=== PATIENT | female | born 1970 | race Hispanic/Latino ===

== ENCOUNTER 2023-10-17 16:22 | Emergency (ER) | payer OTHER ==
[~2023-10-17] VITALS: Ht 157.5 cm; Wt 78.9 kg
[2023-10-17 17:04] LABS: BASOPHILS # (AUTO) 0.02 K/uL (0.00-0.20); BASOPHILS % (AUTO) 0.2 % (0.0-5.0); EOSINOPHILS # (AUTO) 0.04 K/uL (0.00-0.70); EOSINOPHILS % (AUTO) 0.4 % (0.0-8.0); HEMATOCRIT 47.1 % (36-48); IMMATURE GRANULOCYTE ABSOLUTE 0.04 K/uL (0-1); LYMPHOCYTES # (AUTO) 2.7 K/uL (1.0-4.8); LYMPHOCYTES % (AUTO) 28.8 % (21.0-51.0); MEAN CORPUSCULAR HEMOGLOBIN 29.9 pg (27.0-33.0); MEAN CORPUSCULAR HGB CONC 33.8 g/dL (32.0-36.0); MEAN CORPUSCULAR VOLUME 88.7 fL (79-99); MONOCYTES # (AUTO) 0.5 K/uL (0.1-1.0); MONOCYTES % (AUTO) 5.1 % (3.0-13.0); NEUTROPHILS # (AUTO) 6.1 K/uL (1.8-7.7); NEUTROPHILS % (AUTO) 65.1 % (40.0-77.0); PLATELET COUNT (AUTO) 285 K/uL (130-400); RED BLOOD CELL COUNT(AUTO) 5.31 MIL/uL (4.00-5.50); RED CELL DISTRIBUTION WIDTH 12.1 % (11.0-15.5); WHITE BLOOD COUNT (AUTO) 9.4 K/uL (4.8-10.8)
[2023-10-17 17:14] LABS: CREATININE 0.7 mg/dL (0.5-1.0); POTASSIUM 3.8 mmol/L (3.5-5.1)
[2023-10-17 17:19] LABS: ALBUMIN 4.1 g/dL (3.5-5.0); BILIRUBIN,TOTAL 0.4 mg/dL (0.2-1.0); TOTAL PROTEIN, SERUM 8.5 g/dL (6.0-8.3)
[2023-10-17 18:09] LABS: ERYTHROCYTE SEDIMENTATION RATE 18 MM/HR (0-30)
[2023-10-17] MEDS: KETOROLAC 15MG/ML VIAL (15MG/ML) IM STA (18:55)
[2023-10-17] MEDS: HYDROCODONE/ACETAMINOPHEN 5/325 MG TAB PO STA (18:55)
[2023-10-17 20:24] VITALS: BP 152/100; PULSE 100; RESP 16; O2SAT 99
[2023-10-17] MEDS ORDERED: SULF1TAB42 PO (20:27)
[2023-10-17] MEDS ORDERED: AMOX1TAB16 PO (20:27)
== END 2023-10-17 20:38 | disposition home or self-care (01) ==
LOC: EDH 16:22
DX: M79.672 Pain in left foot (principal); M79.89 Other specified soft tissue disorders; E11.9 Type 2 diabetes mellitus without complications; Z90.49 Acquired absence of other specified parts of digestive tract; Z79.899 Other long term (current) drug therapy
CPT/HCPCS: 99284; 80053; 85025; 85651; 83605; 36415; 73630; 96372; 84145; J1885

== ENCOUNTER 2023-10-25 23:36 | Emergency (ER) | payer OTHER ==
[~2023-10-25] VITALS: Ht 154.9 cm; Wt 78.9 kg
[~2023-10-25 23:36] MED LIST: AMOX1TAB16 PO; SULF1TAB42 PO
[2023-10-26 00:20] LABS: CREATININE 0.7 mg/dL (0.5-1.0); POTASSIUM 4.1 mmol/L (3.5-5.1)
[2023-10-26 00:24] LABS: ALBUMIN 3.8 g/dL (3.5-5.0); BILIRUBIN,TOTAL 0.2 mg/dL (0.2-1.0); TOTAL PROTEIN, SERUM 8.4 g/dL (6.0-8.3)
[2023-10-26 00:26] LABS: BASOPHILS # (AUTO) 0.02 K/uL (0.00-0.20); BASOPHILS % (AUTO) 0.2 % (0.0-5.0); EOSINOPHILS # (AUTO) 0.09 K/uL (0.00-0.70); EOSINOPHILS % (AUTO) 0.9 % (0.0-8.0); HEMATOCRIT 44.2 % (36-48); IMMATURE GRANULOCYTE ABSOLUTE 0.04 K/uL (0-1); LYMPHOCYTES # (AUTO) 3.4 K/uL (1.0-4.8); LYMPHOCYTES % (AUTO) 34.3 % (21.0-51.0); MEAN CORPUSCULAR HEMOGLOBIN 29.8 pg (27.0-33.0); MEAN CORPUSCULAR HGB CONC 32.8 g/dL (32.0-36.0); MEAN CORPUSCULAR VOLUME 90.8 fL (79-99); MONOCYTES # (AUTO) 0.8 K/uL (0.1-1.0); MONOCYTES % (AUTO) 7.6 % (3.0-13.0); NEUTROPHILS # (AUTO) 5.6 K/uL (1.8-7.7); NEUTROPHILS % (AUTO) 56.6 % (40.0-77.0); PLATELET COUNT (AUTO) 314 K/uL (130-400); RED BLOOD CELL COUNT(AUTO) 4.87 MIL/uL (4.00-5.50); RED CELL DISTRIBUTION WIDTH 12.1 % (11.0-15.5)
[2023-10-26] MEDS ORDERED: COLC0.6C3 PO (01:13)
[2023-10-26] MEDS ORDERED: INDO50CA98 PO (01:13)
[2023-10-26] MEDS: KETOROLAC 15MG/ML VIAL (15MG/ML) IM ONE (01:46)
[2023-10-26] MEDS: SOLU-MEDROL 40MG VIAL IVP ONE (01:46)
[2023-10-26] MEDS: COLCHICINE 0.6 MG TABLET PO SCH (01:49)
[2023-10-26 02:33] VITALS: BP 127/62; PULSE 78; RESP 18; O2SAT 99
== END 2023-10-26 02:32 | disposition home or self-care (01) ==
LOC: EDH 23:36
DX: E11.9 Type 2 diabetes mellitus without complications (principal); E66.3 Overweight; M10.9 Gout, unspecified; M79.672 Pain in left foot; E78.00 Pure hypercholesterolemia, unspecified; J45.909 Unspecified asthma, uncomplicated; Z68.32 Body mass index [BMI] 32.0-32.9, adult; Z90.89 Acquired absence of other organs; Z90.49 Acquired absence of other specified parts of digestive tract
CPT/HCPCS: 99284; 84550; 80053; 85025; 87040 ×2; 83605; 36415; 73630; 96372; 96374; J2920; J1885

== ENCOUNTER 2023-11-08 10:57 | Emergency (ER) | payer OTHER ==
[~2023-11-08] VITALS: Ht 154.9 cm; Wt 74.4 kg
[~2023-11-08 10:57] MED LIST changes: +COLC0.6C3 PO; +INDO50CA98 PO
[2023-11-08 12:03] LABS: BASOPHILS # (AUTO) 0.03 K/uL (0.00-0.20); BASOPHILS % (AUTO) 0.3 % (0.0-5.0); EOSINOPHILS # (AUTO) 0.04 K/uL (0.00-0.70); EOSINOPHILS % (AUTO) 0.4 % (0.0-8.0); HEMATOCRIT 47.2 % (36-48); IMMATURE GRANULOCYTE ABSOLUTE 0.04 K/uL (0-1); LYMPHOCYTES # (AUTO) 2.5 K/uL (1.0-4.8); MEAN CORPUSCULAR HEMOGLOBIN 29.2 pg (27.0-33.0); MEAN CORPUSCULAR HGB CONC 33.1 g/dL (32.0-36.0); MEAN CORPUSCULAR VOLUME 88.4 fL (79-99); MONOCYTES # (AUTO) 0.7 K/uL (0.1-1.0); MONOCYTES % (AUTO) 5.9 % (3.0-13.0); NEUTROPHILS # (AUTO) 7.9 K/uL (1.8-7.7); PLATELET COUNT (AUTO) 339 K/uL (130-400); RED BLOOD CELL COUNT(AUTO) 5.34 MIL/uL (4.00-5.50); RED CELL DISTRIBUTION WIDTH 12.6 % (11.0-15.5); WHITE BLOOD COUNT (AUTO) 11.2 K/uL (4.8-10.8)
[2023-11-08] MEDS: KETOROLAC 30MG VIAL (30MG/ML) IVP ONE (12:09)
[2023-11-08] MEDS: CLINDAMYCIN IVPB 600MG/50ML 50 ML IV STA (12:09)
[2023-11-08 12:12] LABS: CARBON DIOXIDE 22 mmol/L (21-32); CHLORIDE 99 mmol/L (101-111); CREATININE 0.7 mg/dL (0.5-1.0); GLOMERULAR FILTR. RATE CALC 103 mL/min (>90); GLUCOSE,RANDOM 196 mg/dL (70-105); POTASSIUM 3.9 mmol/L (3.5-5.1); SODIUM SERUM 135 mmol/L (136-145); UREA NITROGEN, BLOOD 13 mg/dL (7-18)
[2023-11-08 12:17] LABS: ALANINE AMINOTRANSFERASE 46 U/L (12-78); ALBUMIN 4.2 g/dL (3.5-5.0); ASPARTATE AMINOTRANSFERASE 23 U/L (10-37); BILIRUBIN,TOTAL 0.3 mg/dL (0.2-1.0); TOTAL PROTEIN, SERUM 8.8 g/dL (6.0-8.3)
[2023-11-08] MEDS ORDERED: CLIN-141 PO (13:01)
[2023-11-08 13:27] VITALS: BP 102/60; PULSE 79; RESP 18; O2SAT 98
== END 2023-11-08 13:28 | disposition home or self-care (01) ==
LOC: EDH 10:57
DX: E11.621 Type 2 diabetes mellitus with foot ulcer (principal); L97.529 Non-pressure chronic ulcer of other part of left foot with unspecified severity; E78.00 Pure hypercholesterolemia, unspecified; J45.909 Unspecified asthma, uncomplicated; E86.0 Dehydration; Z79.899 Other long term (current) drug therapy; Z90.49 Acquired absence of other specified parts of digestive tract; Z98.890 Other specified postprocedural states
CPT/HCPCS: 99284; 96365; 96375; 80053; 85025; 87040 ×2; 82948; 83605; 36415; 73630; J1885; J3490

== ENCOUNTER 2025-02-06 03:37 | Emergency (ER) | payer SELFPAY ==
[~2025-02-06] VITALS: Ht 154.9 cm; Wt 78.0 kg
[~2025-02-06 03:37] MED LIST changes: +CLIN-141 PO
--- NOTE | 2025-02-06 04:03 | ERN ---
ED Note History of Present Illness Stated Complaint: C/O ABD PAIN TO LEFT SIDE Chief Complaint: Abdominal Pain Time Seen by MD: 03:50 Dictation: This is a 54-year-old female who presented to the emergency room complaining of left-sided abdominal pain she stated that the pain started yesterday it was mostly in the left middle abdomen radiating down towards the pelvis area. Pain did not start in the back. No fever chills or rigors. No nausea vomitings no diarrhea she had a bowel movement today that was very hard and small. No other family members are sick. No previous history of any kidney stones. She does give a history of pain when she is urinating. No blood in the urine. Temperature 97.4 pulse 84 respirations 20 blood pressure 140/88 with a pulse oximetry of 98% on room air Her chronic medical problems include diabetes mellitus, asthma, cholecystectomy Allergies: Coded Allergies: No Known Drug Allergies (Unverified Allergy, Unknown, 10/17/23) Home Meds Active Scripts Clindamycin HCl (Clindamycin HCl) 300 Mg Capsule, 300 MG PO QID for 10 Days, #40 CAP Prov:TALYA CARRILLO NP 11/08/23 Colchicine (Colchicine) 0.6 Mg Capsule, 0.6 MG PO TID, #60 CAP Prov:ROBERTH FRANKLIN MD 10/26/23 Indomethacin (Indomethacin) 50 Mg Capsule, 50 MG PO TID, #60 CAP Prov:ROBERTH FRANKLIN MD 10/26/23 Amoxicillin/Potassium Clav (Amox Tr-K Clv 875-125 mg Tab) 875 Mg-125 Mg Tablet, 1 EACH PO BID for 5 Days, #10 TAB Prov:YESSENIA STRANGE DYE RANGE TENDER 10/17/23 Sulfamethoxazole/Trimethoprim (Bactrim Ds Tablet) 800 Mg-160 Mg Tablet, 1 TAB PO BID for 7 Days, #14 TAB 0 Refills Prov:YESSENIA STRANGE DYE RANGE TENDER 10/17/23 Past Medical History Past Medical History: Asthma, Diabetes-Type II, Other Additional Past Medical Hx: HX OF SEASONAL ALLERGIES Surgical History: Cholecystectomy Family History: Negative Social History: Negative History: Not Applicable RN Note Reviewed/Agreed w/PFSH: Yes Review of System Dictation Constitutional: Negative for fever,chills, and weight loss Eyes: Negative for injury, pain,redness, and discharge ENT: Negative for injury,pain or swelling Cardiovascular: Negative for chest pain, palpitations, and edema Respiratory: Negative for shortness of breath, cough, and wheezing, Abdomen/GI: Positive for left side abdominal pain, denies nausea, vomiting, diarrhea, Back: Negative for injury and pain : Negative for injury, bleeding and discharge MS/Extremity: Negative for injury and deformity Skin: Negative for rash, and discoloration Neuro: Negative for headache, weakness, numbness, tingling, and seizure Psych: Negative for suicide ideation, homicidal ideation, and hallucinations Initial Vital Sign VS Vital Signs Date Time Temp Pulse Resp B/P (MAP) Pulse Ox O2 Delivery O2 Flow Rate FiO2 02/06/25 03:39 97.3 84 20 140/88 98 Room Air 02/06/25 04:02 0 21 Physical Exam Dictation General: awake, alert, NAD obese female Head/Face: Normocephalic, atraumatic Eyes: PERRL, EOMI, vision at baseline ENT: oral cavity clear, TMs clear, no signs of infection Neck: Trachea midline, supple, no nuchal rigidity Cardiovascular: RRR, normal S1/S2, No MRGs, no JVD Respiratory: CTAB, no respiratory distress, No rales or wheezes Abdomen: Soft, mild tenderness in the left side of the abdomen in the paraumbilical area., non-distended, normal bowel sounds, no guarding or rebound. Skin: Warm, dry, normal turgor, no rash MS/Extremity: Pulses equal, no cyanosis, neurovascular intact, FROM Neuro: COAx4, GCS 15, strength 5/5, CN 2-12 intact, normal cerebellar exam, normal gait, Psych: Normal behavior, mood, and affect normal Extremities-trace edema without any palpable cords, Homans sign is negative Results (Laboratory/Radiology) Laboratory/Radiology Laboratory Tests Test 02/06/25 03:57 02/06/25 04:00 Urine Color COLORLESS (YELLOW) Urine Appearance CLEAR (CLEAR) Urine pH 6.0 (5.0-8.0) Urine Specific [place] 1.004 (1.001-1.031) Urine Protein NEGATIVE mg/dL (NEGATIVE) Urine Glucose (UA) >=1000 mg/dL (NEGATIVE) H Urine Ketones NEGATIVE mg/dL (NEGATIVE) Urine Occult Blood NEGATIVE (NEGATIVE) Urine Nitrate NEGATIVE (NEGATIVE) Urine Bilirubin NEGATIVE mg/dL (NEGATIVE) Urine Urobilinogen 0.2 mg/dL (0.2-1.0) Urine Leukocyte Esterase NEGATIVE Saima/uL Urine RBC 0-1 /HPF (0-1) Urine WBC 0-1 /HPF (0-1) Urine Bacteria RARE /HPF (None Seen) White Blood Count 7.7 K/uL (4.8-10.8) Red Blood Count 5.13 MIL/uL (4.00-5.50) Hemoglobin 15.3 g/dL (12.0-16.0) Hematocrit 46.1 % (36-48) Mean Corpuscular Volume 89.9 fL (79-99) Mean Corpuscular Hemoglobin 29.8 pg (27.0-33.0) Mean Corpuscular Hemoglobin Concent 33.2 g/dL (32.0-36.0) Red Cell Distribution Width 12.8 % (11.0-15.5) Platelet Count 303 K/uL (130-400) Mean Platelet Volume 9.8 fL (7.5-10.5) Immature Granulocyte % (Auto) 0.4 % (0-1) Neutrophils (%) (Auto) 56.0 % (40.0-77.0) Lymphocytes (%) (Auto) 35.5 % (21.0-51.0) Monocytes (%) (Auto) 6.8 % (3.0-13.0) Eosinophils (%) (Auto) 0.9 % (0.0-8.0) Basophils (%) (Auto) 0.4 % (0.0-5.0) Neutrophils # (Auto) 4.3 K/uL (1.8-7.7) Lymphocytes # (Auto) 2.7 K/uL (1.0-4.8) Monocytes # (Auto) 0.5 K/uL (0.1-1.0) Eosinophils # (Auto) 0.07 K/uL (0.00-0.70) Basophils # (Auto) 0.03 K/uL (0.00-0.20) Absolute Immature Granulocyte (auto 0.03 K/uL (0-1) Nucleated Red Blood Cells 0.0 % (0.0-0.19) Sodium Level 135 mmol/L (136-145) L Potassium Level 4.0 mmol/L (3.5-5.1) Chloride Level 98 mmol/L (101-111) L Carbon Dioxide Level 28 mmol/L (21-32) Blood Urea Nitrogen 14 mg/dL (7-18) Creatinine 0.5 mg/dL (0.5-1.0) Glomerular Filtration Rate Calc 111 mL/min (>90) Random Glucose 167 mg/dL (70-105) H Total Calcium 9.6 mg/dL (8.5-10.1) Lipase 28 U/L (16-77) Labs Reviewed?: Yes CT Scan Comment: RD: left sided abdominal pain ORDERING PHYSICIAN: ROBERTH FRANKLIN MD PROCEDURE: ABD PELVWO - CT ABD/PEL WO CON RENAL/APPY EXAM: CT Abdomen and Pelvis without IV contrast CLINICAL HISTORY: Left side abdominal pain. TECHNIQUE: Thin collimated axial CT images of the abdomen and pelvis were obtained, with sagittal and coronal reformatted images also submitted. A CT scan is done according to ALARA (As Low As Reasonably Achievable). CONTRAST: None. COMPARISON: None. FINDINGS: The included lungs are clear. No focal abnormality within the liver, pancreas, spleen, or adrenals. Cholelithiasis without acute cholecystitis. 1.2 x 1.8 cm exophytic fat density lesion around the right renal lower pole, likely an angiomyolipoma. No renal, ureteral, or bladder calculus. Unremarkable urinary bladder. The uterus and ovaries are within normal limits. No obvious bowel wall thickening, dilatation, or obstruction. A component of mild constipation is present in the colon. The appendix is not visualized. No inflammatory changes around the cecum. Mild calcific atherosclerotic disease in the abdominal aorta and its branches. No pathological lymphadenopathy in the abdomen or pelvis. No ascites or pneumoperitoneum. No acute bony abnormality is evident. Tiny, uncomplicated fat-containing umbilical and supraumbilical hernias. IMPRESSIONS: No acute process in the abdomen or pelvis. 1.2 x 1.8 cm exophytic fat density lesion around the right renal lower pole, likely an angiomyolipoma. No renal, ureteral, or bladder calculus. Cholelithiasis without acute cholecystitis. A component of mild constipation is present in the colon. Tiny, uncomplicated fat-containing umbilical and supraumbilical hernias. /[place] DICTATED BY: ANTHONY SANCHEZ Jr., MD DATE: 02/06/25615 ELECTRONICALLY SIGNED BY: ANTHONY SANCHEZ Jr., MD DATE: 02/06/25615 ED Course ED Course Orders Procedure Category Date Status Time Vital Signs Per CPOE 02/06/25 Transmitted Routine 03:47 Saline Lock Iv CPOE 02/06/25 Transmitted 03:47 Cbc With Differential LAB 02/06/25 Complete 03:47 Lipase LAB 02/06/25 Complete 03:47 Urinalysis Profile LAB 02/06/25 Complete 03:47 Basic Metabolic Panel LAB 02/06/25 Complete 03:47 Ketorolac PHA 02/06/25 Complete Tromethamine 30mg/Ml 04:30 Ct Abd/Pel Wo Con CT 02/06/25 Resulted Renal/Appy 04:23 Current Medications Medications (Trade) Dose Ordered Sig/Coy Route PRN Reason Start Time Stop Time Status Last Admin Dose Admin Ketorolac Tromethamine (toRADol) 30 mg ONCE ONCE IM 02/06/25 04:30 02/06/25 04:32 DC 02/06/25 04:14 Vital Signs Date Time Temp Pulse Resp B/P (MAP) Pulse Ox O2 Delivery O2 Flow Rate FiO2 02/06/25 04:02 97.5 82 18 153/87 96 Room Air* 0 21 02/06/25 03:39 97.3 84 20 140/88 98 Room Air We will perform diagnostic labs, advanced imaging and administer medications according to the patient's complaint. Once the results are available, will review and personally interpreted the labs to rule out any acute life- threatening emergency the trach require immediate intervention and treatment. I will then re-evaluate the patient after treatment and diagnostic exams have return to determine whether the patient requires any further testing, can safely be discharged home or need further admission to hospital for additional treatment and evaluation. Medical Decision Making MDM Differential diagnosis: Colitis, enterocolitis, diverticulitis, constipation, renal colic, cystitis, pyelonephritis This is a 54-year-old female who presented to the emergency room complaining of left-sided abdominal pain she stated that the pain started yesterday it was mostly in the left middle abdomen radiating down towards the pelvis area. Pain did not start in the back. No fever chills or rigors. No nausea vomitings no diarrhea she had a bowel movement today that was very hard and small. No other family members are sick. No previous history of any kidney stones. She does give a history of pain when she is urinating. No blood in the urine. Temperature 97.4 pulse 84 respirations 20 blood pressure 140/88 with a pulse oximetry of 98% on room air Her chronic medical problems include diabetes mellitus, asthma, cholecystectomy 4:40 a.m. labs reviewed CBC BNP 7 is with a normal limits. Urinalysis is pending CT scan of the abdomen and pelvis is also pending. 5:30 a.m. urinalysis is unremarkable for any acute infection. CT scan of the abdomen and pelvis did not show any acute pathology-element of fecal load, small angiolipoma of the right lower pole of the kidney and a very small umbilical and supraumbilical fat containing hernia. Updated the patient on all the labs with the CT findings and reassured her. I have recommended stool softener and a laxative [id number] as well as senna Colace plus which I have sent to the pharmacy Rationale: Tests considered and ordered secondary to shared decision making include: Previous outside records reviewed: Old ER visits. Risk of complication and/or morbidity or mortality of patient management: None Medications-Per medication reconciliation Need for hospitalization: Patient does not meet criteria for hospitalization. Need for emergency major/minor surgery: No There are no social concerns with this patient. Prescription drug management Prescriptions will include symptomatic care Patient's prior external medical records from other ER visits were reviewed by me as indicated. Prior testing and results from previous visits were reviewed. Prior tests were taken into account with medical decision making and resource utilization, independent historian/historians were used to obtain complete medical history. I independently interpreted the test that were performed, results were reviewed by me and considered findings on radiology if ordered. Medical management and examination interpretation discussions were had by me with other qualified healthcare professionals as indicated for the patient's care. Problem List Problem List: (1) Constipation (2) Umbilical hernia without obstruction or gangrene (3) Angiomyolipoma of right kidney (4) Diabetes mellitus DX & DISP Disposition: Discharge Departure Impression: Primary Impression: Constipation Additional Impressions: Umbilical hernia without obstruction or gangrene, Angiomyolipoma of right kidney, Diabetes mellitus with hyperglycemia Condition: Stable Scripts Sennosides/Docusate Sodium (Senna Plus 8.6-50 mg Tablet) 8.6 Mg-50 Mg Tablet 1 TAB PO HS for constipation for 14 Days, #14 TAB 0 Refills Prov: ROBERTH FRANKLIN MD 02/06/25 Additional Instructions: Patient and the caregiver have been informed of all the diagnostic tests and the imaging conducted during the today's visit to the emergency room and has verbalized understanding of the results I have personally reviewed and interpreted all diagnostic exams performed here in the ER today as well as the vital signs documented by the nursing staff. The patient is now being discharged to home and should follow up with the primary care physician or the specialist as directed by the ER staff. Follow-up with primary care provider in 1 to 2 days. Take medications as directed here in the emergency room. Okay to continue home medications unless otherwise discussed during your visit in the emergency room today. Return to your nearest emergency room if symptoms worsen or if there is no improvement. Call 911 if you need immediate assistance. Take Tylenol or Motrin [id number] as needed and if no contraindications are present. Increase oral hydration. A wound culture or urine culture was ordered here in the emergency room department please follow-up with primary care provider and advise them to get repeat ports from our facility. If you had any Ghanshyam wrap/splints that were applied here, please do not remove them until you see your primary care or specialty. Referrals: SELF,REFERRAL (PCP) ROBERTH FRANKLIN MD Feb 06, 2025 04:03
[2025-02-06 04:06] LABS: APPEARANCE,URINE CLEAR (CLEAR); GLUCOSE, URINE (UA) >=1000 mg/dL (NEGATIVE); LEUKOCYTE ESTERASE ,URINE NEGATIVE Leu/uL (NEGATIVE); NITRATE,URINE NEGATIVE (NEGATIVE); OCCULT BLOOD,URINE NEGATIVE (NEGATIVE)
[2025-02-06 04:07] LABS: ADD UA MICROSCOPIC YES
[2025-02-06 04:09] LABS: IMMATURE GRANULOCYTE ABSOLUTE 0.03 K/uL (0-1); NUCLEATED RED BLOOD CELLS 0.0 % (0.0-0.19); PLATELET COUNT (AUTO) 303 K/uL (130-400); RED BLOOD CELL COUNT(AUTO) 5.13 MIL/uL (4.00-5.50); RED CELL DISTRIBUTION WIDTH 12.8 % (11.0-15.5); WHITE BLOOD COUNT (AUTO) 7.7 K/uL (4.8-10.8)
[2025-02-06 04:16] LABS: CREATININE 0.5 mg/dL (0.5-1.0); GLOMERULAR FILTR. RATE CALC 111.0 mL/min (>90); GLUCOSE,RANDOM 167.0 mg/dL (70-105); SODIUM SERUM 135.0 mmol/L (136-145); UREA NITROGEN, BLOOD 14.0 mg/dL (7-18)
--- NOTE | 2025-02-06 05:17 | HMCIMG ---
EXAM: CT Abdomen and Pelvis without IV contrast CLINICAL HISTORY: Left side abdominal pain. TECHNIQUE: Thin collimated axial CT images of the abdomen and pelvis were obtained, with sagittal and coronal reformatted images also submitted. A CT scan is done according to ALARA (As Low As Reasonably Achievable). CONTRAST: None. COMPARISON: None. FINDINGS: The included lungs are clear. No focal abnormality within the liver, pancreas, spleen, or adrenals. Cholelithiasis without acute cholecystitis. 1.2 x 1.8 cm exophytic fat density lesion around the right renal lower pole, likely an angiomyolipoma. No renal, ureteral, or bladder calculus. Unremarkable urinary bladder. The uterus and ovaries are within normal limits. No obvious bowel wall thickening, dilatation, or obstruction. A component of mild constipation is present in the colon. The appendix is not visualized. No inflammatory changes around the cecum. Mild calcific atherosclerotic disease in the abdominal aorta and its branches. No pathological lymphadenopathy in the abdomen or pelvis. No ascites or pneumoperitoneum. No acute bony abnormality is evident. Tiny, uncomplicated fat-containing umbilical and supraumbilical hernias. IMPRESSIONS: No acute process in the abdomen or pelvis. 1.2 x 1.8 cm exophytic fat density lesion around the right renal lower pole, likely an angiomyolipoma. No renal, ureteral, or bladder calculus. Cholelithiasis without acute cholecystitis. A component of mild constipation is present in the colon. Tiny, uncomplicated fat-containing umbilical and supraumbilical hernias. /[place]
[2025-02-06] MEDS ORDERED: SENN-316 PO (05:25)
[2025-02-06 05:47] VITALS: BP 136/82; PULSE 80; RESP 18; TEMP 97.9; O2SAT 98
== END 2025-02-06 05:48 | disposition home or self-care (01) ==
LOC: EDH 03:37
DX: K59.00 Constipation, unspecified (principal); K42.9 Umbilical hernia without obstruction or gangrene; D17.71 Benign lipomatous neoplasm of kidney; E11.65 Type 2 diabetes mellitus with hyperglycemia; J45.909 Unspecified asthma, uncomplicated; Z79.899 Other long term (current) drug therapy; Z90.49 Acquired absence of other specified parts of digestive tract
CPT/HCPCS: 99285; 74176; 80048; 83690; 85025; 81001; 36415; 96372; J1885